=== PATIENT | female | born 1970 | race Caucasian/White ===

== ENCOUNTER 2016-12-28 22:10 | Emergency (ER) | payer BC, OTHER ==
[2016-12-28] MEDS ORDERED: predniSONE 20 MG Tab PO ONE (22:11)
[2016-12-28] MEDS ORDERED: Acetaminophen/HYDROcodone 325-5 MG Tab PO ONE (22:11)
[2016-12-28] MEDS ORDERED: Ketorolac 30 MG/ML SDV IM ONE (22:23)
[2016-12-28 22:39] VITALS: BP 148/99
[2016-12-28] MEDS ORDERED: Take Home: Acetaminophen/HYDROcodone 325-5 MG, 2 Tab Pack PO ONE (22:51)
--- NOTE | 2016-12-28 22:57 | EDM.PDOC ---
ED HPI GENERAL MEDICAL PROBLEM - General Chief Complaint: Upper Extremity Injury/Pain Stated Complaint: left elbow pain Time Seen by Provider: 12/28/16 22:45 Source of Information: Reports: Patient History Limitations: Reports: No Limitations - History of Present Illness INITIAL COMMENTS - FREE TEXT/NARRATIVE: OTONIEL IS A 46 YO FEMALE WHO PRESENTS TO THE ER WITH COMPLAINTS OF LEFT ELBOW PAIN. STATES THIS MORNING SHE NOTICED HER LEFT ELBOW TO BE GIVING HER SOME DISCOMFORT. STATES THRU OUT THE DAY THE PAIN PROGRESSIVELY WORSENED. STATES TONIGHT SHE WENT TO A FOOTBALL GAME AND UPON ARRIVING HOME SHE COULDN'T TAKE THE PAIN ANYMORE. STATES SHE HAS TAKEN IBUPROFEN AND TYLENOL FOR THE DISCOMFORT WITH MINIMAL RELIEF. STATES IT HAS BEEN WARM TO TOUCH WELL. NO INJURY OR TRAUMA. Onset: Today Duration: Getting Worse Location: Reports: Upper Extremity, Left Improves with: Reports: Immobilization Worsens with: Reports: Movement Context: Denies: Trauma Associated Symptoms: Reports: No Other Symptoms Left Elbow Pain Score (Numeric/FACES): 7 - Related Data Allergies Allergy/AdvReac Type Severity Reaction Status Date / Time morphine Allergy Nausea Verified 12/28/16 22:14 Home Meds: Home Meds . [No Known Home Meds] 12/28/16 [History] Past Medical History Genitourinary History: Reports: Other (See Below) Other Genitourinary History: URETER SURGERY - Past Surgical History GI Surgical History: Reports: Appendectomy Female Surgical History: Reports: Hysterectomy Social & Family History - Family History Family Medical History: Noncontributory - Tobacco Use Smoking Status *Q: Current Every Day Smoker Years of Tobacco use: 25 Packs/Tins Daily: 0.5 Review of Systems - Review of Systems Review Of Systems: ROS reveals no pertinent complaints other than HPI. ED EXAM, GENERAL - Physical Exam Exam: See Below Exam Limited By: No Limitations General Appearance: Alert, Mild Distress Extremities: Joint Swelling (MILD WARMTH TO LEFT ELBOW JOINT, ROM DEFERRED SECONDARY TO DISCOMFORT), Arm Pain, Limited Range of Motion, Increased Warmth Neurological: Alert, No Motor/Sensory Deficits Psychiatric: Normal Affect, Normal Mood Skin Exam: Dry, Intact, Increased Warmth (LEFT LATERAL ELBOW). No: Rash Course - Vital Signs Last Recorded V/S: Last Vital Signs Temp 100.3 F 12/28/16 22:23 Pulse 82 09/11/17 22:23 Resp 18 12/28/16 22:23 BP 148/99 H 12/28/16 22:23 Pulse Ox 97 12/28/16 22:23 - Orders/Labs/Meds Orders: Active Orders 24 hr Category Date Time Status Elbow Min 3V Lt [CR] Stat Exams 12/28/16 22:22 Taken Acetaminophen/HYDROcodone [Take Home: Acetaminophen/ Med 12/28/16 22:51 Once HYDROcod, 2 Tab Pack] 2 packet PO ONETIME ONE Labs: Laboratory Tests 12/28/16 12/28/16 Range/Units 22:21 22:21 WBC 8.5 (5.0-10.0) 10^3/uL RBC 5.06 (4.00-5.50) 10^6/uL Hgb 14.8 (12.0-16.0) g/dL Hct 42.5 (37.0-47.0) % MCV 84.0 (82.0-94.0) fL MCH 29.2 (27.0-32.0) pg MCHC 34.8 (33.0-38.0) g/dL RDW Coeff of Donna 14.4 (11.0-15.0) % Plt Count 211 (150-400) 10^3/uL Neut % (Auto) 60.6 (35-85) % Lymph % (Auto) 27.9 (10-55) % [place] % (Auto) 6.0 (0-16) % Eos % (Auto) 4.9 (0-5) % Baso % (Auto) 0.6 (0-3) % Neut # (Auto) 5.16 (1.80-7.00) 10^3/uL Lymph # (Auto) 2.38 (1.00-4.80) 10^3/uL [place] # (Auto) 0.51 (0.00-0.80) 10^3/uL Eos # (Auto) 0.42 (0.00-0.45) 10^3/uL Baso # (Auto) 0.05 10^3/uL Sodium 140 (136-145) mEq/L Potassium 3.1 L (3.5-5.0) mEq/L Chloride 107 H (98-106) mEq/L Carbon Dioxide 22 (21-32) mmol/L BUN 34 H (7-18) mg/dL Creatinine 1.3 H (0.6-1.0) mg/dL Est Cr Clr Drug Dosing 51.16 mL/min Estimated GFR (MDRD) 44 L (>=60) mL/min Glucose 116 H (75-99) mg/dL Uric Acid 6.7 H (2.6-6.0) mg/dL Calcium 9.1 (8.4-10.1) mg/dL C-Reactive Protein 0.5 (0.2-0.8) mg/dL Meds: Medications Discontinued Medications Generic Name Dose Route Start Last Admin Trade Name [place] PRN Reason Stop Dose Admin Ketorolac Tromethamine 30 mg 12/28/16 22:23 12/28/16 22:39 Toradol IM 12/28/16 22:24 30 mg ONETIME ONE Administration Departure - Departure Time of Disposition: 22:56 Disposition: Home, Self-Care 01 Clinical Impression: Acute gout of left elbow Qualifiers: Gout etiology: unspecified cause Qualified Code(s): M10.9 - Gout, unspecified - Discharge Information Instructions: Low-Purine Diet, Gout, [id number] Referrals: Provider,Unknown [Primary Care Provider] - Forms: ED Department Discharge Additional Instructions: 1) PREDNISONE 20MG - 2 TABLETS A DAY FOR 5 DAYS 2) NORCO 5/325 - 1 TABLET EVERY 4 HOURS NEEDED FOR PAIN 3) HANDOUTS GIVEN 4) IF ANY QUESTIONS OR CONCERNS, RETURN TO ER OR CALL AT [phone] - Problem List & Annotations (1) Acute gout of left elbow SNOMED Code(s): 19676874, 609447778 Code(s): M10.9 - GOUT, UNSPECIFIED Status: Acute Current Visit: Yes Qualifiers: Gout etiology: unspecified cause Qualified Code(s): M10.9 - Gout, unspecified - Problem List Review Problem List Initiated/Reviewed/Updated: Yes - My Orders Last 24 Hours: My Active Orders 12/28/16 22:22 Elbow Min 3V Lt [CR] Stat 12/28/16 22:51 Acetaminophen/HYDROcodone [Take Home: Acetaminophen/HYDROcod, 2 Tab Pack] 2 packet PO ONETIME ONE - Assessment/Plan Last 24 Hours: My Active Orders 12/28/16 22:22 Elbow Min 3V Lt [CR] Stat 12/28/16 22:51 Acetaminophen/HYDROcodone [Take Home: Acetaminophen/HYDROcod, 2 Tab Pack] 2 packet PO ONETIME ONE Plan: LABORATORY WORK CONFIRMED A HIGH URIC ACID. TORADOL GIVEN INTRAMUSCULARLY IN ER. WILL PRESCRIBE PREDNISONE AND NORCO FOR DISCOMFORT. WILL PRINT OUT LOW- PURINE DIET.
[2016-12-28] MEDS ORDERED: Take Home: predniSONE 20 MG, 2 Tab Pack PO ONE (23:03)
[2016-12-28] MEDS ORDERED: Take Home: predniSONE 20 MG, 2 Tab Pack ONE (23:05)
== END 2016-12-28 23:20 | disposition home or self-care (01) ==
LOC: CC.ED 22:10
DX: M10.9 Gout, unspecified (principal); F17.210 Nicotine dependence, cigarettes, uncomplicated; Z88.5 Allergy status to narcotic agent; Z90.710 Acquired absence of both cervix and uterus; Z90.89 Acquired absence of other organs
CPT/HCPCS: 36415; 73080; 80048; 84550; 85025; 86140; 96372; 99283; A9270; J1885

== ENCOUNTER 2018-07-03 04:35 | Emergency (ER) | payer OTHER ==
[2018-07-03] MEDS ORDERED: HYDROmorphone 1 MG/ML Syringe SUBCUT ONE (04:44)
[2018-07-03] MEDS ORDERED: Ondansetron 4 MG Tab.DIS PO ONE (04:44)
--- NOTE | 2018-07-03 04:50 | EDM.PDOC ---
ED HPI GENERAL MEDICAL PROBLEM - General Chief Complaint: Abdominal Pain Stated Complaint: abd pain post cholestecomy Time Seen by Provider: 07/03/18 04:40 Source of Information: Reports: Patient History Limitations: Reports: No Limitations - History of Present Illness INITIAL COMMENTS - FREE TEXT/NARRATIVE: patient is a 47 year old female who had her gallbladder removed laparoscopically on Wednesday. She stats she was given percocet and motrin for pain. She states she layed down in the reclinier to sleep and woke up at 0330 with extreme pain in the left shoulder. she rates the pain a 10/10 states it is worse when she lays down and better when sitting up. She denies fever or chills / n/ or vomiting. She too 2 5mg percocet SUGAR GRINDER Her is at bedside,. Onset: Today, Gradual Onset Date: 07/03/18 Onset Time: 03:30 Location: Reports: Other (right shoulder) Quality: Reports: Sharp, Throbbing Severity: Severe Improves with: Reports: Other (sitting up) Worsens with: Reports: Other (laying flat) Associated Symptoms: Reports: Other (recent laprocopic surgery). Denies: Diaphoresis, Nausea/Vomiting Right Shoulder Pain Score (Numeric/FACES): 10 - Related Data Allergies Allergy/AdvReac Type Severity Reaction Status Date / Time morphine Allergy Nausea Verified 07/03/18 04:38 Home Meds: Home Meds Calcium Carbonate [Calcium] 1,000 mg PO DAILY 07/03/18 [History] Cholecalciferol (Vitamin D3) [Vitamin D3] 5,000 unit PO DAILY 07/03/18 [History] Chromium Amino Acid Chelate [Chromium] 200 mcg PO BID 07/03/18 [History] Cranberry 500 mg PO DAILY 07/03/18 [History] Fish Oil/[place]-3 Fatty Acids [Fish Oil 1,000 MG] 1,000 mg PO DAILY 07/03/18 [ History] Multivitamin with Minerals [Hair, Skin and Nails] 1 tab PO DAILY 07/03/18 [ History] Sennosides/Docusate Sodium [Senna-S] 2 tab PO BID 07/03/18 [History] hydroCHLOROthiazide [Hydrochlorothiazide] 25 mg PO DAILY 07/03/18 [History] metFORMIN HCl [Metformin HCl] 1,000 mg PO QPM 07/03/18 [History] metFORMIN HCl [Metformin HCl] 500 mg PO DAILY 07/03/18 [History] oxyCODONE HCl/Acetaminophen [Oxycodone-Acetaminophen 5-325] 1 - 2 tab PO Q4HR [History] Past Medical History Genitourinary History: Reports: Other (See Below) Other Genitourinary History: URETER SURGERY - Past Surgical History GI Surgical History: Reports: Appendectomy Female Surgical History: Reports: Hysterectomy - History Comment History Comment: reviewed and agree with nursing assessment. Social & Family History - Family History Family Medical History: Noncontributory - Living Situation & Occupation Living situation: Reports: , with Family (Reviewed and agree with nursing assessment of SH & FH) ED ROS GENERAL - Review of Systems Review Of Systems: See Below Constitutional: Reports: No Symptoms. Denies: Fever, Chills, Malaise HEENT: Reports: No Symptoms Respiratory: Reports: No Symptoms Cardiovascular: Reports: No Symptoms Endocrine: Reports: No Symptoms GI/Abdominal: Denies: Constipation, Diarrhea, Decreased Appetite : Reports: No Symptoms Musculoskeletal: Reports: Other (right shoulder) Neurological: Reports: No Symptoms Psychiatric: Reports: No Symptoms, Anxiety ED EXAM, GI/ABD - Physical Exam Exam: See Below Exam Limited By: No Limitations General Appearance: Alert, WD/WN, Anxious, Moderate Distress Eyes: Bilateral: Normal Appearance Ears: Normal External Exam, Hearing Grossly Normal Nose: Normal Inspection, Normal Mucosa Throat/Mouth: Normal Inspection, Normal Voice, No Airway Compromise Head: Atraumatic, Normocephalic Neck: Normal Inspection, Supple Respiratory/Chest: No Respiratory Distress, Lungs Clear, Normal Breath Sounds Cardiovascular: Normal Peripheral Pulses, Regular Rate, Rhythm, No Edema, No Gallop GI/Abdominal Exam: Normal Bowel Sounds, Soft, No Organomegaly, No Distention, No Abnormal Bruit, No Mass Back Exam: Normal Inspection Extremities: Normal Inspection, Normal Range of Motion, Normal Capillary Refill Neurological: Alert, Oriented, Normal Cognition Psychiatric: Anxious Skin Exam: Warm, Dry, Intact, Normal Color, No Rash Course - Vital Signs Last Recorded V/S: Last Vital Signs Temp 94.8 F L 07/03/18 04:40 Pulse 53 L 07/03/18 04:40 Resp 18 07/03/18 05:05 BP 150/83 H 07/03/18 05:05 Pulse Ox 99 07/03/18 04:40 - Orders/Labs/Meds Labs: Laboratory Tests 07/03/18 07/03/18 Range/Units 04:50 04:50 WBC 9.2 (5.0-10.0) 10^3/uL RBC 5.12 (4.00-5.50) 10^6/uL Hgb 15.3 (12.0-16.0) g/dL Hct 43.3 (37.0-47.0) % MCV 84.6 (82.0-94.0) fL MCH 29.9 (27.0-32.0) pg MCHC 35.3 (33.0-38.0) g/dL RDW Coeff of Donna 14.0 (11.0-15.0) % Plt Count 253 (150-400) 10^3/uL Neut % (Auto) 60.4 (35-85) % Lymph % (Auto) 27.7 (10-55) % [place] % (Auto) 5.9 (0-16) % Eos % (Auto) 5.6 H (0-5) % Baso % (Auto) 0.4 (0-3) % Neut # (Auto) 5.57 (1.80-7.00) 10^3/uL Lymph # (Auto) 2.55 (1.00-4.80) 10^3/uL [place] # (Auto) 0.54 (0.00-0.80) 10^3/uL Eos # (Auto) 0.52 H (0.00-0.45) 10^3/uL Baso # (Auto) 0.04 10^3/uL Sodium 139 (136-145) mEq/L Potassium 3.4 L (3.5-5.0) mEq/L Chloride 104 (98-106) mEq/L Carbon Dioxide 22 (21-32) mmol/L BUN 30 H (7-18) mg/dL Creatinine 1.1 H (0.6-1.0) mg/dL Est Cr Clr Drug Dosing 59.82 mL/min Estimated GFR (MDRD) 53 L (>=60) mL/min Glucose 116 H (75-99) mg/dL Calcium 9.1 (8.4-10.1) mg/dL Total Bilirubin 0.5 (0.0-1.0) mg/dL AST 44 H (15-37) U/L ALT 79 H (12-78) U/L Alkaline Phosphatase 69 (46-116) U/L Total Protein 7.1 (6.4-8.2) g/dL Albumin 3.3 L (3.4-5.0) g/dL Meds: Medications Discontinued Medications Generic Name Dose Route Start Last Admin Trade Name Hunterq PRN Reason Stop Dose Admin Hydromorphone HCl 1 mg 07/03/18 04:44 07/03/18 04:49 Dilaudid SUBCUT 07/03/18 04:45 1 mg ONETIME ONE Administration Ondansetron HCl 4 mg 07/03/18 04:44 07/03/18 04:55 Zofran Odt PO 07/03/18 04:45 4 mg ONETIME ONE Administration - Re-Assessments/Exams Free Text/Narrative Re-Assessment/Exam: 07/03/18 04:51 patient had cbc, cmp completed She was given Dilaudid and Zofran for pain. .. 07/03/18 05:00 WBC count normal and apin improving. Departure - Departure Time of Disposition: 05:20 Disposition: Home, Self-Care 01 Condition: Good Clinical Impression: Acute pain of right shoulder, Status post laparoscopic cholecystectomy - Discharge Information Instructions: Shoulder Pain, [id number] Referrals: Abiodun Ayala MD [ED Physician] - Forms: ED Department Discharge - Problem List Review Problem List Initiated/Reviewed/Updated: Yes - Assessment/Plan Assessment:: right shoulder pain
[2018-07-03] MEDS ORDERED: Take Home: Acetaminophen/HYDROcodone 325-5 MG, 2 Tab Pack PO ONE (04:57)
[2018-07-03 05:05] VITALS: BP 150/83
== END 2018-07-03 05:30 | disposition home or self-care (01) ==
LOC: CC.ED 04:35
DX: M25.511 Pain in right shoulder (principal); Z90.49 Acquired absence of other specified parts of digestive tract; Z79.899 Other long term (current) drug therapy; Z88.5 Allergy status to narcotic agent
CPT/HCPCS: 36415; 80053; 85025; 96372; 99283; A9270-GY; J1170